=== PATIENT | male | born 1965 | race Caucasian/White ===

== ENCOUNTER 2016-12-14 09:06 | Observation (INO) | payer BC ==
[~2016-12-14] VITALS: Ht 198.1 cm; Wt 115.5 kg
[~2016-12-14 09:06] MED LIST: AUGMENTIN875 MG PO; NOHOMEMEDS
[2016-12-14 10:28] LABS: BASOPHIL COUNT 0.1 K/uL (0-0.1); EOSINOPHIL (%) 1.9 % (0-5); EOSINOPHIL COUNT 0.3 K/uL (0-0.3); HEMATOCRIT 34.6 % (38.0-50.0); IMMATURE GRANULOCYTE (%) 0.5 % (0.0-0.7); IMMATURE GRANULOCYTE COUNT 0.1 K/uL; INSTRUMENT ABS NEUTROPHIL CT 10.5 K/uL; LYMPHOCYTE COUNT 1.8 K/uL (1.0-2.8); MCH 30.5 PG (29.0-34.0); MCHC 32.9 G/DL (30.0-36.0); MCV 92.5 FL (86-99); MEAN PLAT.VOLUME 10.1 uM^3 (9.0-12.4); MONOCYTE (%) 4.4 % (3-12); MONOCYTE COUNT 0.6 K/uL (0-0.8); NEUTROPHIL (%) 79.2 % (45-76); NEUTROPHIL COUNT 10.5 K/uL (1.8-6.4); PLATELET COUNT 251 K/uL (156-360); RBC DIS.WIDTH-CV 13.3 % (11.8-14.6); RBC DIS.WIDTH-SD 45.1 % (39-53); RED BLOOD COUNT 3.74 M/uL (4.00-5.50); WHITE BLOOD COUNT 13.3 K/uL (4.1-10.2)
[2016-12-14 10:40] LABS: CHLORIDE 110 mEq/L (99-109); POTASSIUM 4.8 mEq/L (3.7-5.4); SODIUM 139 mEq/L (136-147)
[2016-12-14 10:42] LABS: GLUCOSE 153 mg/dL (70-99)
[2016-12-14 10:43] LABS: ANION GAP 10 MEQ/L (2-14)
[2016-12-14 10:46] LABS: GFR ESTIMATE (CALCULATED) > 59 mL/min/; UREA NITROGEN (BUN) 18 mg/dL (9-23)
[2016-12-14] MEDS ORDERED: NAPROXEN SODIU550 MG PO (12:21)
[2016-12-14 13:34] VITALS: BP 113/70
[2016-12-14 15:20] VITALS: BP 106/70
[2016-12-14 19:59] LABS: HEMATOCRIT 30.9 % (38.0-50.0); MCV 92.8 FL (86-99)
[2016-12-14 20:22] VITALS: BP 107/70
[2016-12-15] VITALS (7 sets, daily range): BP systolic 92–121; BP diastolic 50–81
[2016-12-15 02:07] LABS: HEMATOCRIT 26.9 % (38.0-50.0); MCV 92.4 FL (86-99)
[2016-12-15 07:44] LABS: HEMATOCRIT 28.3 % (38.0-50.0); MCV 93.7 FL (86-99)
[2016-12-15 08:13] LABS: ANION GAP 4 MEQ/L (2-14); CHLORIDE 112 MEQ/L (99-109); GFR ESTIMATE (CALCULATED) > 59 mL/min/; POTASSIUM 4.3 MEQ/L (3.7-5.4); SAMPLE HEMOLYSIS CHECK 0; SAMPLE ICTERIC CHECK 0; SAMPLE LIPEMIA CHECK 0; SODIUM 143 MEQ/L (136-147); UREA NITROGEN (BUN) 8 mg/dL (9-23)
[2016-12-15 08:15] LABS: GLUCOSE 109 mg/dL (70-99)
[2016-12-15 08:57] LABS: ALKALINE PHOSPHATASE 61 IU/L (3-129); DIRECT BILIRUBIN 0.1 mg/dL (0.0-0.3); TOTAL BILIRUBIN 0.5 MG/DL (0.0-1.0)
[2016-12-15 19:37] LABS: HEMATOCRIT 26.5 % (38.0-50.0)
[2016-12-16 03:24] VITALS: BP 112/60
[2016-12-16 07:00] VITALS: BP 110/70
[2016-12-16 08:42] LABS: MCV 93.9 FL (86-99)
[2016-12-16] MEDS ORDERED: NICOTINE PATCH1 EAC2 TD (09:55)
[2016-12-16] MEDS ORDERED: PROTONIX40 MG PO (09:55)
[2016-12-16 12:00] VITALS: BP 119/74
== END 2016-12-16 12:41 | disposition home or self-care (01) ==
LOC: EME 09:06 → EDOF 11:29 → 5WEST 11:29 → EDOF 11:29 → 5WEST 13:22
PROVIDERS: Emergency Medicine; Internal Medicine; Nurse Practitioner Adult Health
DX: K57.31 Diverticulosis of large intestine without perforation or abscess with bleeding (principal); D62 Acute posthemorrhagic anemia; K64.8 Other hemorrhoids; K29.90 Gastroduodenitis, unspecified, without bleeding; K44.9 Diaphragmatic hernia without obstruction or gangrene; F17.210 Nicotine dependence, cigarettes, uncomplicated; G89.29 Other chronic pain; M79.671 Pain in right foot; D72.829 Elevated white blood cell count, unspecified
CPT/HCPCS: 80048; 80076; 85014; 85018; 85025; 85610; 86900; 86901; 88305; 88342 TC; 93005; 99281; 99283; C9113; G0378; J2250; J2270; J2405; J3010; J7030; J7042

== ENCOUNTER 2017-03-18 12:16 | Emergency (ER) | payer OTHER, BC ==
[~2017-03-18] VITALS: Ht 198.1 cm; Wt 121.6 kg
[~2017-03-18 12:16] MED LIST changes: +NAPROXEN SODIU550 MG PO; +NICOTINE PATCH1 EAC2 TD; +PROTONIX40 MG PO
[2017-03-18] MEDS ORDERED: AUGMENTIN875 MG PO (14:07)
[2017-03-18 14:54] VITALS: BP 133/91
[2017-03-19 10:23] LABS: AHBS INDEX 2.05; HEPATITIS B SURFACE ANTIBODY Nonreactive; HIV INDEX 0.12; HIV-1/2 AB/AG COMBO Nonreactive; HPCA INDEX 0.28
== END 2017-03-18 14:50 | disposition home or self-care (01) ==
LOC: EME 12:16
PROVIDERS: Physician Assistant
DX: S50.872A Other superficial bite of left forearm, initial encounter (principal); Y04.1XXA Assault by human bite, initial encounter; Y92.199 Unspecified place in other specified residential institution as the place of occurrence of the external cause; Y99.0 Civilian activity done for income or pay
CPT/HCPCS: 86703; 86706; 86803; 99281; 99284

== ENCOUNTER 2017-04-17 20:06 | Emergency (ER) | payer OTHER, BC ==
[~2017-04-17] VITALS: Ht 195.6 cm; Wt 121.5 kg
[2017-04-17] MEDS ORDERED: NORCO 5/3251 TABLET PO (22:04)
[2017-04-17] MEDS ORDERED: NAPROSYN500 MG PO (22:04)
[2017-04-17 22:47] VITALS: BP 116/83
== END 2017-04-17 22:47 | disposition home or self-care (01) ==
LOC: EME 20:06
DX: S83.91XA Sprain of unspecified site of right knee, initial encounter (principal); X50.9XXA Other and unspecified overexertion or strenuous movements or postures, initial encounter; Y93.89 Activity, other specified; Y99.0 Civilian activity done for income or pay; Y92.199 Unspecified place in other specified residential institution as the place of occurrence of the external cause
CPT/HCPCS: 73564; 99281; 99284

== ENCOUNTER 2018-02-13 07:20 | Emergency (ER) | payer BC ==
[~2018-02-13] VITALS: Ht 195.6 cm; Wt 123.1 kg
[~2018-02-13 07:20] MED LIST changes: +NAPROSYN500 MG PO; +NORCO 5/3251 TABLET PO
[2018-02-13 08:05] LABS: HEMOGLOBIN 14.6 G/DL (12.5-16.6); MCH 30.9 PG (29.0-34.0); MCV 90.9 FL (86-99); PLATELET COUNT 253 K/uL (156-360); RBC DIS.WIDTH-SD 47.1 % (39-53); RED BLOOD COUNT 4.73 M/uL (4.00-5.50)
[2018-02-13 08:16] LABS: CHLORIDE 109 mEq/L (99-109)
[2018-02-13 08:17] LABS: POTASSIUM 4.1 mEq/L (3.7-5.4); SODIUM 139 mEq/L (136-147)
[2018-02-13 08:18] LABS: GLUCOSE 106 mg/dL (70-99)
[2018-02-13 08:22] LABS: CREATININE 0.9 mg/dL (0.6-1.3); GFR ESTIMATE (CALCULATED) > 59 mL/min/ (58.99-99999)
[2018-02-13 08:23] LABS: UREA NITROGEN (BUN) 11 mg/dL (9-23)
[2018-02-13 08:42] LABS: APPEARANCE CLEAR ((CLEAR)); BILIRUBIN NEGATIVE; BLOOD NEGATIVE; COLOR YELLOW ((YELLOW)); GLUCOSE (STRIP) NEGATIVE; KETONES NEGATIVE; LEUKOCYTES NEGATIVE; NITRITE NEGATIVE; PROTEIN (STRIP) NEGATIVE; SPECIFIC GRAVITY 1.021 (1.000-1.030); UROBILINOGEN 0.2 MG/DL (0.2-1.0)
[2018-02-13] MEDS ORDERED: NAPROSYN500 MG PO (09:43)
[2018-02-13] MEDS ORDERED: LIDODERM 5% P1 PATCH TD (09:43)
[2018-02-13] MEDS ORDERED: VALIUM5 MG PO (09:43)
[2018-02-13 10:22] VITALS: BP 125/83
== END 2018-02-13 10:23 | disposition home or self-care (01) ==
LOC: EME 07:20
PROVIDERS: Nurse Practitioner Family
DX: M54.5 Low back pain (principal); M62.830 Muscle spasm of back; K21.9 Gastro-esophageal reflux disease without esophagitis; F17.200 Nicotine dependence, unspecified, uncomplicated
CPT/HCPCS: 72100; 80048; 81003; 85027; 99281; 99284; J1885